=== PATIENT | female | born 1955 | race Caucasian/White ===

== ENCOUNTER → 2020-05-19 | Outpatient (CLI) | payer OTHER | LOC: GMAL 14:56 | PROVIDERS: ATTEND Family Medicine | DX: Z00.01 Encounter for general adult medical examination with abnormal findings (principal) ==

== ENCOUNTER → 2020-07-16 | Outpatient (CLI) | payer OTHER ==
--- NOTE | 2020-07-19 11:23 | MAM ---
EXAM DESCRIPTION: 3D Screening BILATERAL : Digital Mammography. CLINICAL HISTORY: 64 years Female SCREENING . No complaints. Bilateral breast augmentation. No family history breast cancer. Menarche age 12. Childbirth age 23. Menopause age 48. No HRT. Lifetime risk of developing breast cancer (Tyrer-Cuzick model)(%): 5.8. COMPARISON: Baseline study at this facility. No prior reports available. TECHNIQUE: Bilateral CC and MLO projection full-field images, with Pat Implant Displacement axillary nodes. digital tomosynthesis mammographic technique. Bilateral 2-D digital full-field images, MLO and CC projections, non-displaced. Bilateral digital 2-D full-field MLO images. Implants displaced technique. CAD available for 2-D images. FINDINGS: The breast parenchymal density pattern is: Scattered areas of fibroglandular density. Lateral submuscular implants. Minimal calcifications and folds on the implant capsule. Focal bulge in the inferior right breast implant on the non implant displacement images. Small stellate density middle third medial right breast, 3.7 cm from the nipple approximately 2:30 clock, best seen on the CC tomosynthesis images No skin thickening or nipple retraction No focal, stellate mass or density, focal asymmetry , and no suspicious microcalcifications left breast. IMPRESSION: BI-RADS CATEGORY: 0 - INCOMPLETE- Need additional imaging evaluation. RECOMMENDATIONS: FOLLOW-UP: Recall for additional imaging: Right breast full-field images utilizing lateral medial two-dimensional and tomosynthesis technique and directed right breast ultrasound region of interest.. Written communication concerning the IMPRESSION and Follow-up, will be mailed to the patient and referring health care provider. Electronically signed by: Elias Go MD 07/19/2020 11:21 AM [facility]
== END ==
LOC: MAMMO 10:23
PROVIDERS: ATTEND Family Medicine
DX: Z12.31 Encounter for screening mammogram for malignant neoplasm of breast (principal)